=== PATIENT | female | born 1985 | race Caucasian/White ===

== ENCOUNTER 2023-03-26 08:06 | Emergency (ER) | payer BC, SELFPAY ==
[2023-03-26] VITALS (14 sets, daily range): BP systolic 100–133; BP diastolic 78–92; PULSE 90–105; RESP 15–26; TEMP 36.8; O2SAT 95–99
--- NOTE | ~2023-03-26 | CT_ITS ---
EXAMINATION: CT abdomen pelvis w con DATE: 03/26/2023 10:53 INDICATION: Right upper quadrant abdominal pain with nausea and vomiting TECHNIQUE: Computed tomography (CT) of the abdomen and pelvis was performed with 100 mL Omnipaque-350 intravenous contrast. Automated exposure control and iterative reconstruction technique were employe d. The dose-length product was 1469.70 mGy-cm. COMPARISON: 03/28/2016 FINDINGS: Lung bases are clear. Heart size is normal. No pericardial or pleural effusion. Liver, gallbladder, s pleen, pancreas, bilateral adrenal glands and kidneys are normal. Interval appendectomy with suture l ine along the tip of the cecum and along the right lower quadrant mesentery. Bowels are otherwise unr emarkable with no obstruction. Small fat-containing umbilical hernia. Bladder, anteverted uterus and bilateral adnexa are unremarkable. No free intraperitoneal gas or fluid. No osteolytic mild periporta l and portacaval lymphadenopathy. For reference the largest portacaval lymph node is increased from 3 .2 x 1.1 cm currently measuring 3.4 x 1.5 cm. The largest periportal lymph node has increased from 1. 8 x 1.3 cm to currently measuring 2.1 x 1.6 cm. No other pathologically enlarged abdominal or pelvic lymphadenopathy. IMPRESSION: 1. Nonspecific mild periportal and portacaval lymphadenopathy with differential including reactive ly mphadenopathy, lymphoma or metastatic disease of unknown primary. Given location of these lymph nodes are readily amenable to percutaneous biopsy. 2. Small fat-containing umbilical hernia. Reviewed, dictated and finalized at location A. ATERIALS ENGINEER IMPRESSION: 1. Nonspecific mild periportal and portacaval lymphadenopathy with differential including reactive lymphadenopathy, lymphoma or metastatic disease of unknown primary. Given location of these lymph nodes are readily amenable to percutaneo us biopsy. 2. Small fat-containing umbilical hernia.
--- NOTE | ~2023-03-26 | US_ITS ---
EXAMINATION: US abdomen limited DATE: 03/26/2023 11:16 INDICATION: Right upper quadrant abdominal pain. Nausea and vomiting. TECHNIQUE: Multiple grayscale and Doppler ultrasound images of the abdomen were obtained. COMPARISON: CT abdomen and pelvis 03/26/23 FINDINGS: The visualized portions of the head and body of the pancreas are normal. The liver is jung l without focal lesion. No liver surface nodularity. There is normal flow in main portal vein. The ga llbladder is normal in size. No gallstones or gallbladder wall thickening. There was no sonographic M urphy sign. The common duct is normal and measures 4 mm. IMPRESSION: 1. Normal right upper quadrant ultrasound. Reviewed, dictated and finalized at location E. TH INFORMATION SPECIALIST
[2023-03-26 08:46] LABS: Basophils Percent Auto 0.5 % (0.2-1.2); Eosinophils Absolute Auto 0.1 K/mm3 (0-0.3); Eosinophils Percent Auto 1.1 % (0-4.4); Hematocrit 41.5 % (37.0-47.0); Hemoglobin 13.3 g/dL (12.0-15.0); Immature Granulocyte Absolute 0.02 K/mm3 (0.00-0.031); Immature Granulocyte Percent A 0.5 % (0-0.5); Lymphocytes Absolute Auto 1.49 K/mm3 (0.9-3.2); Lymphocytes Percent Auto 34.1 % (18.3-44.2); Mean Corpuscular Hemoglobin 29.1 pg (26-34); Mean Corpuscular Volume 90.8 fl (80-100); Mean Platelet Volume 9.3 fl (7.4-10.4); Monocytes Absolute Auto 0.5 K/mm3 (0.1-0.6); Monocytes Percent Auto 10.3 % (2.6-8.5); Neutrophils Absolute Auto 2.3 K/mm3 (1.3-6.7); Neutrophils Percent Auto 53.5 % (45.5-73.1); Platelet Count Result 219 k/mm3 (150-375); Red Blood Count 4.57 M/mm3 (4.2-5.4); Red Cell Distribution Width 12.4 % (11.5-14.5); White Blood Count 4.4 K/mm3 (4.5-10.0)
[2023-03-26 08:56] LABS: Alanine Aminotransferase 20 U/L (6-35); Albumin Level 4.3 g/dL (3.5-5.1); Alkaline Phosphatase 70 U/L (38-126); Anion Gap 7 mmol/L (8-16); Appearance Urine Clear (Clear); Aspartate Amino Transferase 32 U/L (14-36); Bilirubin Urine Negative (Negative); Bilirubin,Total 0.5 mg/dL (0.2-1.3); Blood Urea Nitrogen 16 mg/dL (7-17); Blood Urine Negative (Negative); Calcium 9.2 mg/dL (8.4-10.2); Carbon Dioxide 25 mmol/L (22-30); Chloride 108 mmol/L (98-107); Color Urine Yellow (Yellow); Estimated CRCL calculation 110 ml/min; Estimated Glomerular Filt Rate > 60; Glucose 120 mg/dL (65-110); Glucose Urine UA Negative (Negative); Ketones Urine Trace mg/dL (Negative); Leukocyte Esterase Ur Negative LEU/UL (Negative); Lipase 58 U/L (23-300); Nitrate Urine Negative (Negative); Potassium 4.1 mmol/L (3.4-5.0); Protein Urine Negative (Negative); Sodium 140 mmol/L (137-145); Specific Grav Ur 1.022 (1.001-1.035); Urobilinogen Urine 0.2 mg/dL (<2.0)
[2023-03-26 09:00] LABS: Add Urine Microscopic? NO
--- NOTE | 2023-03-26 10:32 | PC.NURSE ---
patient states that her pain was better but it has returned. provider aware
--- NOTE | 2023-03-26 10:42 | ED.ABDPAIN ---
HPI - Abdominal Pain General Chief Complaint: Abdominal Pain <CLAUDIO Almazan Last Filed: 03/26/23 18:28> Stated Complaint: Abdomen pain <CLAUDIO Almazan Last Filed: 03/26/23 18:28> Time Seen by Provider: 03/26/23 09:04 <CLAUDIO Almazan Last Filed: 03/26/23 18:28> Source: patient <CLAUDIO Almazan Last Filed: 03/26/23 18:28> Mode of arrival: ambulatory <CLAUDIO Almazan Last Filed: 03/26/23 18:28> Limitations: no limitations <CLAUDIO Almazan Last Filed: 03/26/23 18:28> History of Present Illness HPI narrative: This is a 37-year-old female who presents to the ED with chief complaint of upper abdominal pain beginning around midnight last night. Reports the pain woke her up and she has had several episodes of vomiting since onset. Reports location in the right upper quadrant primarily. However she states that the symptoms have largely resolved as I interview her initially. Denies any GI bleeding symptoms. Reports she has had multiple episodes of these attacks of pain the past but this seems worse. Denies problems with bowel movements fevers, chills chest pain, shortness urinary problems or flank pain. <CLAUDIO Almazan Last Filed: 03/26/23 18:28> Related Data Allergies/Adverse Reactions: Allergies Allergy/AdvReac Type Severity Reaction Status Date / Time No Known Allergies Allergy Verified 03/26/23 08:23 <CLAUDIO Almazan Last Filed: 03/26/23 18:28> Review of Systems Review of Systems: All systems as dictated in HPI <CLAUDIO Almazan Last Filed: 03/26/23 18:28> Exam Narrative: GENERAL: Well-appearing, well-nourished, and in no acute distress. HEAD: Normocephalic, atraumatic. EYES: PERRLA and EOMI. ENT: Nares clear, no rhinorrhea or epistaxis. Mucous membranes moist. Oropharynx without tonsillar hypertrophy exudate or other lesions. NECK: Supple. No adenopathy or masses. CHEST: No respiratory distress. Clear to auscultation. No wheezes rales or rhonchi HEART: Regular rate and rhythm. No murmur heard. Normal peripheral pulses. ABDOMEN: Soft, nontender, nondistended, normal active bowel sounds. MSK: Normal range of motion. No edema. SKIN: Warm, dry, no rash. NEURO: Alert and oriented x3. No focal deficits. PSYCH: Normal mood and affect. <Rios Alarcon PA-C - Last Filed: 03/26/23 18:28> Course Course Emergency Course: Re-evaluation 1035: Patient complaint nursing staff that she was starting to have pain and nausea again. Re-examination shows tenderness to the right quadrant and epigastrium. Pain meds, nausea meds and scans ordered. <CLAUDIO Almazan Last Filed: 03/26/23 18:28> CENTRAL SUPPLY AIDE/PA Physician Supervision For this patient encounter, I reviewed the CENTRAL SUPPLY AIDE or PA documentation, treatment plan, and medical decision making and I had [id number] time with this patient. I performed all the aspects of the MDM as documented. <Zion Campoverde MD - Last Filed: 03/26/23 19:34> Vital Signs Vital signs: Vital Signs Temperature 98.3 F 03/26/23 08:16 Pulse Rate 102 H 03/26/23 08:16 Respiratory Rate 17 03/26/23 08:16 Blood Pressure 123/92 H 03/26/23 08:16 Pulse Oximetry 96 03/26/23 08:16 Oxygen Delivery Room Air 03/26/23 08:16 Temperature 98.3 F 03/26/23 08:16 Pulse Rate 95 03/26/23 11:25 Respiratory Rate 19 03/26/23 11:25 Blood Pressure 133/92 H 03/26/23 11:25 Pulse Oximetry 97 03/26/23 11:25 Oxygen Delivery Room Air 03/26/23 08:16 <Rios Alarcon PA-C - Last Filed: 03/26/23 18:28> Vital Signs Temperature 98.3 F 03/26/23 08:16 Pulse Rate 102 H 03/26/23 08:16 Respiratory Rate 17 03/26/23 08:16 Blood Pressure 123/92 H 03/26/23 08:16 Pulse Oximetry 96 03/26/23 08:16 Oxygen Delivery Room Air 03/26/23 08:16 Temperature 98.3 F 03/26/23 08:16 Pulse Rate 95 03/26/23 11:25 Respiratory Rate 19 03/26/23
[2023-03-26] MEDS: MORPHINE SULFATE (*CRX) 4 MG/ML INJ IV PUSH (10:43)
[2023-03-26] MEDS: SODIUM CHLORIDE 0.9% IV 1,000 ML 999 ML IV CONT ×2 (10:43→10:44)
[2023-03-26] MEDS: ONDANSETRON INJ 4 MG/2 ML VIAL IV PUSH (10:44)
== END 2023-03-26 11:54 | disposition home or self-care (01) ==
PROVIDERS: Emergency Medicine; Emergency Provider Physician Assistant
DX: R59.1 Generalized enlarged lymph nodes (principal); K42.9 Umbilical hernia without obstruction or gangrene
CPT/HCPCS: 36415; 74177; 76705; 80053; 81003; 81025; 83690; 85025; 96361; 96374; 96375; 99284; J2270; J2405; J7030; Q9967